=== PATIENT | female | born 1980 | race African-American/Black ===

== ENCOUNTER 2017-08-05 23:18 | Emergency (ER) | payer OTHER ==
[~2017-08-05] VITALS: Ht 152.4 cm; Wt 63.5 kg
[~2017-08-05 23:18] MED LIST: BACTRIM DS TAB1 EACH PO; BENADRYL25 MG PO; CIPROFLOXACIN500 M1 PO; CLARITIN10 M2 PO; CLARITIN10 MG PO; CULTURELLE1 EAC1 PO; DIPHENHIST50 MG PO; FLONASE 0.05%50 MCG NASAL; GUAIFENESIN-CO120 ML PO; IBUPROFEN 600600 M1 PO; MACROBID 100 M100 M1 PO; PEPCID40 MG PO; PREDNISONE 20 M20 MG PO; VITAMIN D22000 UNIT PO
[2017-08-06] MEDS ORDERED: DIFLUCAN150 MG PO (00:24)
== END 2017-08-06 00:55 | disposition home or self-care (01) ==
LOC: ER 23:18
DX: B37.9 Candidiasis, unspecified (principal); Z88.6 Allergy status to analgesic agent